=== PATIENT | male | born 1955 | race American Indian/Alaskan Native ===

== ENCOUNTER 2019-06-26 11:15 | Emergency (ER) | payer MEDICAID ==
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
== END 2019-06-26 14:09 | disposition home or self-care (01) ==
LOC: JD.ED 11:15
DX: T50.901A Poisoning by unspecified drugs, medicaments and biological substances, accidental (unintentional), initial encounter (principal); I10 Essential (primary) hypertension; E66.9 Obesity, unspecified; Z88.6 Allergy status to analgesic agent; Z79.899 Other long term (current) drug therapy
CPT/HCPCS: 36415; 80053; 85025; 99282; 99283

== ENCOUNTER 2020-01-19 11:06 | Emergency (ER) | payer MEDICAID ==
[2020-01-19] MEDS ORDERED: Sodium Chloride 0.9% 10 ML Syringe FLUSH PRN (11:33)
[2020-01-19] MEDS ORDERED: HYDROmorphone 0.5 MG/0.5 ML Syringe IVPUSH ONE (11:53)
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
--- NOTE | 2020-01-19 12:36 | CR ---
Chest: AP and lateral views of the chest are obtained. Heart is enlarged. Moderately large hiatal hernia seen. Lungs are clear with no acute parenchymal change. Degenerative change noted within the spine. Impression: 1. Findings as described above. 2. Nothing acute is seen. Diagnostic code #3 This report was dictated in MDT
--- NOTE | 2020-01-19 12:44 | CT ---
CT abdomen and pelvis Technique: Multiple axial sections were obtained through the abdomen and pelvis. Intravenous and oral contrast not utilized which diminishes details. Findings: Fluid is seen around the liver. Liver parenchyma is poorly visualized without IV contrast and difficult to exclude any intraparenchymal liver abnormality. Fluid is also noted around the spleen. Large hiatal hernia is noted. Adrenal glands show no nodule. Kidneys show no abnormal calcifications or hydronephrosis. Aorta shows no aneurysm. No retroperitoneal adenopathy or mesenteric abnormalities are seen. Prostate gland is mildly enlarged. Small fat-containing bilateral inguinal hernias are noted. Mild body wall edema is seen. Bone window settings were reviewed which shows anterior wedging at the thoracolumbar junction with diffuse degenerative change. Spondylitic defects are seen at L5-S1 with spondylolisthesis measuring approximately 1 cm. Impression: 1. Fluid around the liver. Liver is very poorly seen and difficult to exclude liver injury or other parenchymal abnormality within the liver without IV contrast. Consider repeat study with IV contrast if patient's creatinine function is within normal limits. If patient has poor renal function, liver ultrasound then recommended. 2. Ascites is seen throughout the abdomen and pelvis. 3. Other findings believed to be incidental as noted above. Diagnostic code #5 This report was dictated in MDT
[2020-01-19] MEDS ORDERED: Dextrose 5%-Lactated Ringers 1,000 ML IV SCH (12:45)
== END 2020-01-19 13:46 ==
LOC: JD.ED 11:06
DX: C22.8 Malignant neoplasm of liver, primary, unspecified as to type (principal); N17.9 Acute kidney failure, unspecified; D64.9 Anemia, unspecified; I10 Essential (primary) hypertension; R19.7 Diarrhea, unspecified; E66.9 Obesity, unspecified; Z87.891 Personal history of nicotine dependence; Z88.5 Allergy status to narcotic agent; Z79.899 Other long term (current) drug therapy
CPT/HCPCS: 36415; 36600; 71046; 74176; 80053; 82140; 82550; 82803; 83735; 83880; 84100; 84550; 85025; 93005; 96361; 96374; 99285; J1170; J7121; 86850; 86900; 86901; 86922; 93010; 99284

== ENCOUNTER 2020-02-09 06:02 | Inpatient (IN) | payer MEDICAID ==
[2020-02-09] MEDS ORDERED: Lactated Ringers 1,000 ML IV ONE (06:24)
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
[2020-02-09] MEDS ORDERED: Insulin Regular, Human 100 Units/ML 3 ML Vial IV STA (07:37)
[2020-02-09] MEDS ORDERED: 50% Dextrose in Water 50 ML Syringe IVPUSH STA (07:38)
[2020-02-09] MEDS ORDERED: Calcium Gluconate 10% 1 GM/10 ML SDV IVPUSH ONE (07:39)
--- NOTE | 2020-02-09 07:47 | CR ---
Chest: AP view of the chest was obtained. Comparison: Prior chest x-ray of 01/19/20. Hiatal hernia is noted. Tortuous thoracic aorta is seen. Heart size appears within normal limits for technique. Lungs are clear with no acute parenchymal change. Bony structures are grossly intact. Impression: 1. Findings as described above. 2. Nothing acute is appreciated on AP chest x-ray. Diagnostic code #2 This report was dictated in MDT
[2020-02-09] MEDS ORDERED: Sodium Bicarbonate 100 MEQ in Sodium Chloride 0.45% 1,000 ML IV ONE (08:00)
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
[2020-02-09] MEDS ORDERED: LORazepam 2 MG/ML SDV IVPUSH PRN (11:50)
[2020-02-09] MEDS ORDERED: Scopolamine 1.5 MG Transdermal Patch TOP ONE (12:00)
[2020-02-09] MEDS: Atropine 1% Ophth Soln 5 ML BOTTLE SL SCH ×5 (12:34→19:57)
--- NOTE | 2020-02-09 21:59 | PCM.DCSUM1 ---
Discharge Summary - Hospital Course HPI Initial Comments: Mariano King is a 64 yo male who presented to ED on 02/09/2020 via EMS due to altered mental status. He was seen in our ED on 01/19/2020 and subsequently transferred to [facility] in [place]. He turned today after being found by his caregiver with an altered mental status. Initial BP in the ER was 80/24, however repeat without treatment was 105/76. He reportedly has stage IV liver cancer which was confirmed by liver biopsy and diagnosed on 12/30/2019. Unfortunately there is difficulty obtaining information as the patient is unresponsive and caregivers not present in the emergency room. Patient was reportedly hospitalized from 01/19/2020 sooth 02/02/2020 and upon returning home a 24-hour [employer] was set up. [employer] reports the patient has not been eating for the past 2 days. He has not been out of bed over the past 24 hours. Is reported that he had an appointment to see Dr. Gusman discuss chemotherapy, patient's caregiver is currently discussing hospice options. Initially in the ED temp is 36.4 Celsius. Pulse 83. Respirations 20. Pulse ox 97% on room air. Labs are obtained. WBC is mildly elevated at 12.24. Hemoglobin is low at 9.0. Platelets are elevated at 381,000. Neutrophils are elevated at 89%. There is no bandemia. INR is 1.33. Sodium is low at 123. Potassium is very high at 7.1. Chloride is 92. Carbon dioxide is 19. Anion gap is 19.1. BUN is 77. Creatinine 3.4. GFR is 18. Glucose is low at 77. Lactic acid is 2.8. Calcium is low at 8.1. Magnesium is high at 2.9. Bilirubin is high at 2.5. AST is 142. ALT is 52. Alkaline phosphatase is very high at 443. Troponin is normal at 0.038. Protein is low at 6.3. Albumin is low at 2.4. Lipase is 206. Ammonia is very high at 125. Blood cultures x2 were obtained. Chest x-ray shows a hiatal hernia but nothing acute. He is given 10 units of regular insulin and 1 amp of D50 along with 1 g of calcium gluconate. He is also started on a liter of half NS with 2 A of bicarbonate given at 100 mL an hour. UA is obtained showing katarzyna urine with trace protein, 1+ bilirubin, trace leukocyte esterase, 30-40 hyaline casts, few amorphous sediment. He carries a history of macular degeneration, hypertension, GERD, alcohol addiction, mild intellectual disability, obesity, iron deficiency anemia, stage IV liver cancer diagnosed on 12/30/2019. Brief History: Assessment/Plan Comment:: Day of admission: Presented to ED via EMS after being found with AMS. Hospitalized in [place] from 01/19/2020- 02/02/2020 after being seen in our ED. Returned home to 24 hour [employer]. Caregiver reports patient has not ate in past 2 days and was in bed all day prior; Found by caregiver yelling today. Diagnosed with Stage IV liver cancer on 12/30/2019; Had consult with Dr. Gusman. Per caregiver - guardian is considering hospice care. Labs in ED: -WBC 12.24. -Hgb 9.0. -Plt 381. -INR 1.33. -Potassium 7.1. - Chloride 92. -Carbon dioxide 19. -Anion gap 19.1. -BUN 77. -Creatinine 3.4. -eGFR 18. -Lactic acid 2.8. -Magnesium 2.9. -Calcium 8.1. -Total bilirubin 2.5. -AST 142. -ALT 52. -Alk Phos 443. -Ammonia 125. -Troponin 0.038. - Albumin 2.4. -UA negative. -Given 10 units regular insulin, 1 amp D50, 1g calcium gluconate, 2amps Bicarbonate in 1/2 NS at 100ml/hr in ED. -CXR shows nothing acute. -Patient admitted to medical floor on telemetry. -Saturations decreased to 82% on floor on room air. -Dr. Frank discussed case with patients guardian, Vitor Pryor. Decision made to place patient on comfort measures. Need for comfort care. Altered mental status. Leukocytosis. Volume depletion. Thrombocytosis. Elevated lactic acid level. Hypermagnesemia. Elevated AST (SGOT). Elevated alkaline phosphatase level. Hypoalbuminemia. Hyperammonemia. Hepatic encephalopathy. High anion gap metabolic acidosis. Hyperkalemia. Hyponatremia. Acute renal failure. Alcohol abuse. Liver cancer. PLAN. -Comfort measures. -Vital signs Qshift. -Morphine PRN for pain. -Ativan PRN for anxiety. -Hold all home medications. -Discontinue IV fluids. -Discontinue telemetry. -Spiritual care consult. -Scopolamine patch for secretions. -Atropine PRN for secretions. -Suction as needed. - Discontinue oxygen Diagnosis: Stroke: No - Discharge Data Discharge Date: 02/09/20 Discharge Disposition: 20 Condition: - Referral to Home Health Primary Care Physician: Sarah Laird NP - Discharge Diagnosis/Problem(s) (1) Acute renal failure SNOMED Code(s): 87232611 ICD Code: N17.9 - ACUTE KIDNEY FAILURE, UNSPECIFIED Status: Acute Priorit y: High Current Visit: Yes Qualifiers: Acute renal failure type: unspecified Qualified Code(s): N17.9 - Acute kidney failure, unspecified (2) Hepatic encephalopathy SNOMED Code(s): 95213702 ICD Code: K72.90 - HEPATIC FAILURE, UNSPECIFIED WITHOUT COMA Status: Acute Priority: High Current Visit: Yes (3) Hyperkalemia SNOMED Code(s): 80055985 ICD Code: E87.5 - HYPERKALEMIA Status: Acute Priority: High Current Vis it: Yes (4) Hyponatremia SNOMED Code(s): 49714788 ICD Code: E87.1 - HYPO-OSMOLALITY AND HYPONATREMIA Status: Acute Priority: High Current Visit: Yes (5) Liver cancer SNOMED Code(s): 97948110 ICD Code: C22.9 - MALIG NEOPLASM OF LIVER, NOT SPECIFIED PRIMARY OR SEC Status: Acute Priority: High Current Visit: Yes Qualifiers: Liver malignancy type: unspecified primary liver malignancy Qualified Code(s): C22.8 - Malignant neoplasm of liver, primary, unspecified as to type - Patient Summary/Data Consults: Consultations 02/09/20 11:51 Consult to Spiritual Care [CONS] Routine Hospital Course: Patient was kept comfortable and with family at bedside at 2135 on 02/09/2020. - Discharge Plan *PRESCRIPTION DRUG MONITORING PROGRAM REVIEWED*: Not Applicable *COPY OF PRESCRIPTION DRUG MONITORING REPORT IN PATIENT ALBERT: Not Applicable Home Medications: Home Meds Lactobacillus Acidophilus [Acidophilus] 1 tab PO DAILY 06/26/19 [History] amLODIPine [Norvasc] 2.5 mg PO DAILY 06/26/19 [History] B2/Vits A,C,E/Lut/Zeaxanth/Min [Icaps] 1 tab PO DAILY 02/09/20 [History] Folic Acid 1 mg PO DAILY 02/09/20 [History] Thiamine [Vitamin B-1] 100 mg PO DAILY 02/09/20 [History] Forms: ED Department Discharge Referrals: Sarah Laird NP [Primary Care Provider] - Julio Cesar Gusman MD [Ordering Only Provider] - - Discharge Summary/Plan Comment DC Time >30 min.: No Discharge Summary/Plan Comment: Discharged to home. - General Info Date of Service: 02/09/20 - Patient Data Vitals - Most Recent: Last Vital Signs Temp 96.6 F L 02/09/20 11:37 Pulse 83 02/09/20 11:41 Resp 20 02/09/20 11:37 BP 105/62 02/09/20 11:37 Pulse Ox 92 L 02/09/20 11:41 Weight - Most Recent: 92.215 kg I&O - Last 24 hours: Intake & Output 02/09/20 02/09/20 02/09/20 06:59 14:59 22:59 Intake Total 0 Output Total 0 Balance 0 Lab Results - Last 24 hrs: Laboratory Results - last 24 hr 02/09/20 02/09/20 02/09/20 Range/Units 06:44 06:44 06:44 WBC 12.24 H (4.23-9.07) K/mm3 RBC 3.27 L (4.63-6.08) M/mm3 Hgb 9.0 L D (13.7-17.5) gm/dl Hct 27.7 L (40.1-51.0) % MCV 84.7 D (79.0-92.2) fl MCH 27.5 (25.7-32.2) pg MCHC 32.5 (32.2-35.5) g/dl RDW Std Deviation 44.9 H (35.1-43.9) fL Plt Count 381 H (163-337) K/mm3 MPV 7.9 L (9.4-12.3) fl Neutrophils % (Manual) 89 H (40-60) % Band Neutrophils % 0 (0-10) % Lymphocytes % (Manual) 5 L (20-40) % Atypical Lymphs % 0 % Monocytes % (Manual) 6 (2-10) % Eosinophils % (Manual) 0 L (0.8-7.0) % Basophils % (Manual) 0 L (0.2-1.2) Toxic Granulation Platelet Estimate Adequate Plt Morphology Comment See note Hypochromasia 2+ moderate Nora Cells 1+ slight RBC Morph Comment Normal PT 14.3 H (9.7-12.0) SECONDS INR 1.33 APTT 40 H (22-31) SECONDS Sodium 123 L (136-145) mEq/L Potassium 7.1 H* D (3.5-5.1) mEq/L Chloride 92 L (98-107) mEq/L Carbon Dioxide 19 L (21-32) mEq/L Anion Gap 19.1 H (5-15) BUN 77 H (7-18) mg/dL Creatinine 3.4 H (0.7-1.3) mg/dL Est Cr Clr Drug Dosing TNP Estimated GFR (MDRD) 18 (>60) mL/min BUN/Creatinine Ratio 22.6 H (14-18) Glucose 77 L (80-115) mg/dL Lactic Acid (0.4-2.0) mmol/L Calcium 8.1 L (8.5-10.1) mg/dL Magnesium 2.9 H (1.8-2.4) mg/dl Total Bilirubin 2.5 H (0.2-1.0) mg/dL AST 142 H (15-37) U/L ALT 52 (16-63) U/L Alkaline Phosphatase 443 H (46-116) U/L Ammonia (11-32) umol/L Troponin I 0.038 (0.00-0.056) ng/mL Total Protein 6.3 L (6.4-8.2) g/dl Albumin 2.4 L (3.4-5.0) g/dl Globulin 3.9 gm/dL Albumin/Globulin Ratio 0.6 L (1-2) Lipase 206 (73-393) U/L Urine Color (Yellow) Urine Appearance (Clear) Urine pH (5.0-8.0) Ur Specific [place] (1.005-1.030) Urine Protein (Negative) Urine Glucose (UA) (Negative) Urine Ketones (Negative) Urine Occult Blood (Negative) Urine Nitrite (Negative) Urine Bilirubin (Negative) Urine Urobilinogen (0.2-1.0) Ur Leukocyte Esterase (Negative) U Hyaline Cast (Auto) (0-5) /lpf Urine RBC (0-5) /hpf Urine WBC (0-5) /hpf Ur Epithelial Cells (0-5) /hpf Amorphous Sediment (NOT SEEN) /hpf Urine Bacteria (FEW) /hpf Urine Mucus (FEW) /hpf 02/09/20 02/09/20 02/09/20 Range/Units 06:44 06:44 06:55 WBC (4.23-9.07) K/mm3 RBC (4.63-6.08) M/mm3 Hgb (13.7-17.5) gm/dl Hct (40.1-51.0) % MCV (79.0-92.2) fl MCH (25.7-32.2) pg MCHC (32.2-35.5) g/dl RDW Std Deviation (35.1-43.9) fL Plt Count (163-337) K/mm3 MPV (9.4-12.3) fl Neutrophils % (Manual) (40-60) % Band Neutrophils % (0-10) % Lymphocytes % (Manual) (20-40) % Atypical Lymphs % % Monocytes % (Manual) (2-10) % Eosinophils % (Manual) (0.8-7.0) % Basophils % (Manual) (0.2-1.2) Toxic Granulation Platelet Estimate Plt Morphology Comment Hypochromasia [place] Cells RBC Morph Comment PT (9.7-12.0) SECONDS INR APTT (22-31) SECONDS Sodium (136-145) mEq/L Potassium (3.5-5.1) mEq/L Chloride (98-107) mEq/L Carbon Dioxide (21-32) mEq/L Anion Gap (5-15) BUN (7-18) mg/dL Creatinine (0.7-1.3) mg/dL Est Cr Clr Drug Dosing Estimated GFR (MDRD) (>60) mL/min BUN/Creatinine Ratio (14-18) Glucose (80-115) mg/dL Lactic Acid 2.8 H* (0.4-2.0) mmol/L Calcium (8.5-10.1) mg/dL Magnesium (1.8-2.4) mg/dl Total Bilirubin (0.2-1.0) mg/dL AST (15-37) U/L ALT (16-63) U/L Alkaline Phosphatase (46-116) U/L Ammonia 125 H (11-32) umol/L Troponin I (0.00-0.056) ng/mL Total Protein (6.4-8.2) g/dl Albumin (3.4-5.0) g/dl Globulin gm/dL Albumin/Globulin Ratio (1-2) Lipase (73-393) U/L Urine Color Katarzyna H (Yellow) Urine Appearance Clear (Clear) Urine pH 5.5 (5.0-8.0) Ur Specific [place] 1.020 (1.005-1.030) Urine Protein Trace H (Negative) Urine Glucose (UA) Negative (Negative) Urine Ketones Negative (Negative) Urine Occult Blood Negative (Negative) Urine Nitrite Negative (Negative) Urine Bilirubin 1+ H (Negative) Urine Urobilinogen 1.0 (0.2-1.0) Ur Leukocyte Esterase Trace H (Negative) U Hyaline Cast (Auto) 30-40 H (0-5) /lpf Urine RBC 0-5 (0-5) /hpf Urine WBC 0-5 (0-5) /hpf Ur Epithelial Cells Not seen (0-5) /hpf Amorphous Sediment Few H (NOT SEEN) /hpf Urine Bacteria Few (FEW) /hpf Urine Mucus Not seen (FEW) /hpf Med Orders - Current: Current Medications Atropine Sulfate (Atropine 1% Ophth Soln) 0 ml SL Q2H VIVIANA Last Admin: 02/09/20 19:57 Dose: 5 ml Documented by: Lorazepam (Ativan) 0.5 mg IVPUSH Q4H PRN PRN Reason: Anxiety - comfort care Last Admin: 02/09/20 17:25 Dose: 0.5 mg Documented by: Miscellaneous Information (Remove Patch) 0 ea TRDERM ONETIME ONE Stop: 02/12/20 12:01 Morphine Sulfate (Morphine) 3 mg IVPUSH Q2H PRN PRN Reason: Pain - comfort measures Last Admin: 02/09/20 18:20 Dose: 3 mg Documented by: Discontinued Medications Calcium Gluconate (Calcium Gluconate) 1 gm IVPUSH ONETIME ONE Stop: 02/09/20 07:40 Last Admin: 02/09/20 08:23 Dose: 1 gm Documented by: Dextrose/Water (Dextrose 50% In Water) 50 ml IVPUSH ONETIME STA Stop: 02/09/20 07:39 Last Admin: 02/09/20 08:17 Dose: 50 ml Documented by: Lactated Ringer's (Ringers, Lactated) 1,000 mls @ 999 mls/hr IV .BOLUS ONE Stop: 02/09/20 07:24 Last Admin: 02/09/20 06:31 Dose: 999 mls/hr Documented by: Sodium Bicarbonate 100 meq/ (Sodium Chloride) 1,100 mls @ 100 mls/hr IV ONETIME ONE Stop: 02/09/20 18:59 Last Admin: 02/09/20 08:29 Dose: 100 mls/hr Documented by: Insulin Human Regular (Humulin R) 10 unit IV ONETIME STA Stop: 02/09/20 07:38 Last Admin: 02/09/20 08:20 Dose: 10 unit Documented by: Scopolamine (Transderm-Scop) 1.5 mg TOP ONETIME ONE Stop: 02/09/20 12:01 Last Admin: 02/09/20 12:12 Dose: 1.5 mg Documented by: - Exam General: Reports: Other (Nonresponsive) HEENT: Denies: Pupils Reactive Lungs: Reports: Other (No breath sounds) Cardiovascular: Reports: Other (No heart sounds)
== END 2020-02-10 00:55 | disposition expired | DRG 442 ==
LOC: JD.ED 06:02 → JD.MS 10:21
PROVIDERS: ADMIT Family Medicine; ATTEND Family Medicine
DX: K72.90 Hepatic failure, unspecified without coma (principal); N17.9 Acute kidney failure, unspecified; E87.1 Hypo-osmolality and hyponatremia; C22.8 Malignant neoplasm of liver, primary, unspecified as to type; E87.2 Acidosis; Z51.5 Encounter for palliative care; I10 Essential (primary) hypertension; Z66 Do not resuscitate; E78.5 Hyperlipidemia, unspecified; K21.9 Gastro-esophageal reflux disease without esophagitis; E83.42 Hypomagnesemia; E61.1 Iron deficiency; D50.9 Iron deficiency anemia, unspecified; M54.9 Dorsalgia, unspecified; E66.9 Obesity, unspecified; R74.0 Nonspecific elevation of levels of transaminase and lactic acid dehydrogenase [LDH]; K44.9 Diaphragmatic hernia without obstruction or gangrene; H35.30 Unspecified macular degeneration; Z68.30 Body mass index [BMI] 30.0-30.9, adult; I12.9 Hypertensive chronic kidney disease with stage 1 through stage 4 chronic kidney disease, or unspecified chronic kidney disease; N18.9 Chronic kidney disease, unspecified; G89.29 Other chronic pain; E86.9 Volume depletion, unspecified; D47.3 Essential (hemorrhagic) thrombocythemia; E87.5 Hyperkalemia; F10.20 Alcohol dependence, uncomplicated; F70 Mild intellectual disabilities; Z88.5 Allergy status to narcotic agent; Z79.899 Other long term (current) drug therapy; Z98.49 Cataract extraction status, unspecified eye; Z98.890 Other specified postprocedural states
CPT/HCPCS: 36415; 71045; 80053; 81001; 82140; 83605; 83690; 83735; 84484; 85007; 85027; 85610; 85730; 87040 ×2; 96361; 96365; 96366; 96375; 99285; J0610; J1815; J7030; J7120; 99223; A9270-GY; J2060; J2270